=== PATIENT | male | born 2000 | race Caucasian/White ===

== ENCOUNTER 2018-05-27 13:03 | Emergency (ER) | payer SELFPAY ==
[~2018-05-27] VITALS: Ht 177.8 cm; Wt 86.2 kg
[2018-05-27 13:11] VITALS: Ht 177.8 cm; Wt 86.2 kg
[2018-05-27 14:37] VITALS: BP 134/90
== END 2018-05-27 14:37 | disposition home or self-care (01) ==
LOC: ED 13:03
DX: S82.435A Nondisplaced oblique fracture of shaft of left fibula, initial encounter for closed fracture (principal); X58.XXXA Exposure to other specified factors, initial encounter; Y93.66 Activity, soccer; Y92.322 Soccer field as the place of occurrence of the external cause; Y99.8 Other external cause status